=== PATIENT | female | born 1945 | race Two or more races ===

== ENCOUNTER → 2018-08-30 08:10 | Outpatient (CLI) | payer OTHER | END | disposition home or self-care (01) | LOC: LAB 08:10 | DX: E03.8 Other specified hypothyroidism (principal); E11.9 Type 2 diabetes mellitus without complications; I10 Essential (primary) hypertension; E78.2 Mixed hyperlipidemia ==

== ENCOUNTER 2018-08-30 10:29 | Outpatient (CLI) | payer OTHER | END 2018-08-30 10:39 | disposition home or self-care (01) | LOC: MAMO-SONO 10:29 | DX: Z12.31 Encounter for screening mammogram for malignant neoplasm of breast (principal); Z87.898 Personal history of other specified conditions; N63.11 Unspecified lump in the right breast, upper outer quadrant ==

== ENCOUNTER 2018-09-06 09:59 | Outpatient (CLI) | payer OTHER | END 2018-09-06 10:02 | disposition home or self-care (01) | LOC: NUCLEAR 09:59 | DX: M81.0 Age-related osteoporosis without current pathological fracture (principal) ==

== ENCOUNTER 2020-10-06 13:29 | Outpatient (CLI) | payer OTHER | END 2020-10-06 14:32 | disposition home or self-care (01) | LOC: MAMO-SONO 13:29 | PROVIDERS: ATTEND Obstetrics & Gynecology | DX: N60.11 Diffuse cystic mastopathy of right breast (principal); Z12.31 Encounter for screening mammogram for malignant neoplasm of breast; N95.0 Postmenopausal bleeding ==

== ENCOUNTER 2020-10-16 12:49 | Outpatient (CLI) | payer OTHER | END 2020-10-16 12:54 | disposition home or self-care (01) | LOC: NUCLEAR 12:49 | PROVIDERS: ATTEND Obstetrics & Gynecology | DX: M81.0 Age-related osteoporosis without current pathological fracture (principal) ==

== ENCOUNTER → 2020-11-03 | Outpatient (CLI) | payer OTHER | END | disposition home or self-care (01) | LOC: MRI 10:45 → TOM 10:45 | PROVIDERS: ATTEND Obstetrics & Gynecology | DX: D25.0 Submucous leiomyoma of uterus (principal); K40.20 Bilateral inguinal hernia, without obstruction or gangrene, not specified as recurrent; N95.8 Other specified menopausal and perimenopausal disorders | CPT/HCPCS: 72195 ==

== ENCOUNTER 2021-10-05 13:35 | Emergency (ER) | payer OTHER ==
[~2021-10-05] VITALS: Ht 160 cm; Wt 90.7 kg
[2021-10-05] MEDS ORDERED: ATACAND32 MG PO (13:57)
[2021-10-05] MEDS ORDERED: LIPITOR20 MG (13:57)
== END 2021-10-05 15:20 | disposition home or self-care (01) ==
LOC: ER 13:35
DX: M19.011 Primary osteoarthritis, right shoulder (principal); E78.00 Pure hypercholesterolemia, unspecified; I10 Essential (primary) hypertension; M25.572 Pain in left ankle and joints of left foot; M25.561 Pain in right knee

== ENCOUNTER 2023-04-15 20:16 | Emergency (ER) | payer OTHER ==
[~2023-04-15] VITALS: Ht 160 cm; Wt 89.8 kg
[~2023-04-15 20:16] MED LIST: ATACAND32 MG PO; LIPITOR20 MG
[2023-04-15] MEDS ORDERED: CRESTOR10 MG PO (20:23)
[2023-04-15] MEDS ORDERED: RAYOS1 MG (20:23)
[2023-04-15] MEDS ORDERED: FAMCICLOVIR500 MG PO (20:39)
[2023-04-15] MEDS ORDERED: NEURONTIN300 MG PO (20:39)
[2023-04-15] MEDS ORDERED: KETOROLAC TROMETHAMINE 60 MG VIAL IM ONE (20:45)
== END 2023-04-15 20:46 | disposition home or self-care (01) ==
LOC: ER 20:17
DX: B02.8 Zoster with other complications (principal)
CPT/HCPCS: 96372; 99282; J1885

== ENCOUNTER 2023-05-14 23:44 | Emergency (ER) | payer OTHER ==
[~2023-05-14] VITALS: Ht 157.5 cm; Wt 81.6 kg
[~2023-05-14 23:44] MED LIST changes: +CRESTOR10 MG PO; +FAMCICLOVIR500 MG PO; +NEURONTIN300 MG PO; +RAYOS1 MG
[2023-05-15] MEDS ORDERED: PEPCID AC20 MG (00:18)
[2023-05-15 01:46] LABS: HEMATOCRIT 36.8 % (36.0-45.00); HEMOGLOBIN 12.2 g/dL (12.0-15.00); MEAN CELL VOLUME 91.6 fL (80.00-100.00); MEAN CORPUSCULAR HEMOGLOBIN 30.3 pg (27.00-32.0); MEAN CORPUSCULAR HGB CONC 33.1 g/dl (32.0-36.0); PLATELET COUNT 151 K/uL (150-450); RED BLOOD COUNT 4.01 M/uL (4.00-6.00); RED CELL DISTRIBUTION WIDTH 13.3 % (11.5-14.5)
[2023-05-15 02:10] LABS: INR 1.03; PARTIAL THROMBOPLASTIN TIME 28.4 SECONDS (22.0-34.0); PROTHROMBIN TIME 10.8 SECONDS (9.0-11.5)
== END 2023-05-15 03:12 | disposition home or self-care (01) ==
LOC: ER 23:44
PROVIDERS: General Practice
DX: H11.30 Conjunctival hemorrhage, unspecified eye (principal); I10 Essential (primary) hypertension; E11.9 Type 2 diabetes mellitus without complications